=== PATIENT | male | born 1955 | race Caucasian/White ===

== ENCOUNTER 2023-08-17 20:11 | Emergency (ER) | payer MEDICARE, BC ==
[~2023-08-17] VITALS: Ht 182.9 cm; Wt 72.6 kg
[2023-08-17] MEDS: ibuprofen tablet 400 MG TABLET PO ONE (23:55)
[2023-08-17] MEDS: bacitracin 15gm ointment TP ONE (23:56)
[2023-08-17] MEDS: LIDOcaine 1% W/epiNEPHrine 1:100,000 20ml vial IJ ONE (23:59)
[2023-08-17] MEDS: TETanus/Pertussis (Acell)/Diphther VAC/PF (Tdap-Adult) 0.5ml syringe IMVAC ONE (23:59)
[2023-08-18] MEDS ORDERED: ACET1TAB96 PO (00:26)
[2023-08-18] MEDS ORDERED: SULF1TAB49 PO (00:26)
[2023-08-18] MEDS: sulfamethoxazole/trimethoprim DS (800/160mg) tablet PO ONE (02:18)
[2023-08-18] MEDS: ondansetron 4mg rapidly disintigrating tab PO ONE (02:18)
[2023-08-18 02:44] VITALS: BP 156/81; PULSE 64; RESP 16; TEMP 98.9; O2SAT 97
== END 2023-08-18 02:51 | disposition home or self-care (01) ==
LOC: ER 20:11
DX: S61.511A Laceration without foreign body of right wrist, initial encounter (principal); X58.XXXA Exposure to other specified factors, initial encounter; Y93.89 Activity, other specified; Y92.89 Other specified places as the place of occurrence of the external cause; Y99.8 Other external cause status
CPT/HCPCS: 12031; 90471; 90715; 99284; A6258; A6402; A6446